=== PATIENT | female | born 1970 | race Caucasian/White ===

== ENCOUNTER 2018-04-11 14:29 | Emergency (ER) | payer MEDICAID ==
[~2018-04-11] VITALS: Ht 170.2 cm; Wt 143.0 kg
[~2018-04-11 14:29] MED LIST: GABA-531 PO; HYDR-519 PO; HYDR50TA54 PO; IBUP-2271 PO; LORA1TAB PO; LORA2VIA33 PO; OMEP20TA2 PO; PARO30TA62 PO; PARO30TA76 PO; PHEN100C4 PO; QUET300T2 PO; QUET400T11 PO; TOPA25 PO
[2018-04-11 15:07] LABS: BASOPHILS % 0.7 % (0.0-2.0); EOSINOPHILS % 3.9 % (0.0-5.0); HEMATOCRIT. 32.9 % (36.0-48.0); HEMOGLOBIN. 10.4 g/dL (12.0-16.0); LYMPHOCYTES % 20.3 % (20.0-50.0); MEAN CORPUSCULAR HEMOGLOBIN 25.2 pg (28.0-32.0); MEAN CORPUSCULAR VOLUME 79.6 fL (81.0-99.0); MEAN PLATELET VOLUME 8.1 fl (7.4-10.4); MONOCYTES % 9.6 % (2.0-8.0); NEUTROPHILS % 65.5 % (40.0-76.0); PLATELET 324 x1000/uL (130-400); RED BLOOD CELL COUNT 4.14 mill/uL (4.2-5.4); RED CELL DISTRIBUTION WIDTH 16.9 % (11.6-14.6)
[2018-04-11 15:08] LABS: CHLORIDE 107 mEq/L (98-107)
[2018-04-11 15:12] LABS: ETHANOL BLOOD < 10 mg/dL
[2018-04-11 15:17] LABS: VALPROIC ACID < 3.0 ug/mL (50-100)
[2018-04-11 15:19] LABS: CARBAMAZEPINE 2.3 ug/mL (4-12)
[2018-04-11 15:25] LABS: HCG SCREEN NEGATIVE
[2018-04-11 15:38] LABS: PHENOBARBITAL < 2.1 ug/mL (15.0-40.0)
[2018-04-11] MEDS ORDERED: GABAPENTIN 300MG CAPSULE PO STA (16:04)
[2018-04-11 16:30] VITALS: BP 134/81
== END 2018-04-11 16:40 | disposition home or self-care (01) ==
LOC: ER 14:29
DX: G40.909 Epilepsy, unspecified, not intractable, without status epilepticus (principal); I10 Essential (primary) hypertension; F41.9 Anxiety disorder, unspecified; J45.909 Unspecified asthma, uncomplicated; D64.9 Anemia, unspecified; Z88.3 Allergy status to other anti-infective agents; Z88.0 Allergy status to penicillin; Z91.018 Allergy to other foods
CPT/HCPCS: 36415; 80053; 80156; 80165; 80184; 80185; 84703; 85025; 93005; 99285; G0482